=== PATIENT | male | born 1965 | race Caucasian/White ===

== ENCOUNTER 2020-11-10 08:04 | Emergency (ER) | payer OTHER ==
[2020-11-10] MEDS ORDERED: ACETAMINOPHEN 325 MG TABLET PO ONE (08:52)
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
[2020-11-10 10:36] VITALS: BP 154/86
== END 2020-11-10 10:39 | disposition home or self-care (01) ==
LOC: ER 08:04
DX: K04.7 Periapical abscess without sinus (principal); F17.210 Nicotine dependence, cigarettes, uncomplicated
CPT/HCPCS: 99283